=== PATIENT | female | born 1965 | race Caucasian/White ===

== ENCOUNTER 2018-11-27 06:08 | Emergency (ER) | payer MEDICAID ==
[~2018-11-27] VITALS: Ht 157.5 cm; Wt 61.2 kg
[2018-11-27 06:10] VITALS: BP_SYST 123
[2018-11-27 08:19] LABS: STREPTOCOCCUS A SCREEN (RAPID) NEGATIVE (NEGATIVE)
[2018-11-27] MEDS ORDERED: IBUPROFEN 600 MG TABLET PO ONE (08:45)
[2018-11-27 08:51] VITALS: BP_SYST 120
== END 2018-11-27 08:51 | disposition home or self-care (01) ==
LOC: SED 06:08
DX: B34.9 Viral infection, unspecified (principal); M79.10 Myalgia, unspecified site; R07.89 Other chest pain; I10 Essential (primary) hypertension; Z88.1 Allergy status to other antibiotic agents; Z88.2 Allergy status to sulfonamides; Z88.8 Allergy status to other drugs, medicaments and biological substances
CPT/HCPCS: 36415; 86403; 86710; 87081; 99283

== ENCOUNTER 2019-12-27 06:46 | Emergency (ER) | payer MEDICAID ==
[~2019-12-27] VITALS: Ht 157.5 cm; Wt 55.3 kg
[2019-12-27 06:50] VITALS: BP_SYST 149
--- NOTE | 2019-12-27 06:52 | NUR ---
Patient to ER bed 07 to gown for evaluation. Side rails up.
--- NOTE | 2019-12-27 06:52 | NUR ---
Pt brought into ED by self. Pt states she drover self to ED. Pt awake, alert, oriented x4. Pt ambulates with mild limp on R side. Pt has unlabored respirations, symmetrical rise and fall of chest. Pt states chief complaint of sever right ankle pain and mild left ankle pain secondary to mechanical slip and fall while descending a set of wooden stairs. Pt states that she missed a step and her right ankle twisted, she tried to catch self with left ankle when she tumbled into a sitting position on stair with r leg pinned behind her. Pt states she has full range of motion of all effected joints, with increasing pain on plantar flexion of the R foot. Pt is able to bear weight. Pt denies KO, syncope, chest pain, dizziness, shortness of breath, nausea, vomiting, blurred vision, head impact, pt denies any other medical complaint at this time. Pt resting in ED bed comfortably, mild distress. Pt rates R ankle pain as 9/10, L ankle pain as 1/10. VSS
--- NOTE | 2019-12-27 06:53 | NUR ---
(Nursing Notes Cont.) Pt has mild abraisions and swelling to lateral side of ankle near lateral malleolus.
--- NOTE | 2019-12-27 06:59 | NUR ---
SAKSHI Kilgore at bedside examining patient.
--- NOTE | 2019-12-27 07:12 | NUR ---
Medication was given, pt tolerated well. No acute distress, will continue to monitor.
[2019-12-27] MEDS ORDERED: IBUPROFEN 600 MG TABLET PO ONE (07:15)
--- NOTE | 2019-12-27 07:20 | NUR ---
Report given to NANCY Velasco. All care endorsed.
--- NOTE | 2019-12-27 07:29 | NUR ---
Patient has a three 1-1.5 cm abrasions ringt foot. Edges well approximated. Site cleansed with sterile water . Dressing of non adhering applied to site. No bleeding noted. Pt tolerated well.
[2019-12-27] MEDS ORDERED: BACITRACIN 1 GM OINT TP ONE ×2 (07:30→07:40)
--- NOTE | 2019-12-27 07:30 | NUR ---
Crutches properly fitted for patient by Krista CRUZ. Patient given crutch walking instructions and demonstration. Is able to demonstrate adequate crutch walking technique with crutches provided. Vishnu wrap applied right ankle. pedal pulse noted. Capillary refill < 3 seconds. Patient has ability to move non-splinted digits. Has sensation present to affected site. Skin color within normal limits. Applied for pain management control.
[2019-12-27 07:45] VITALS: BP_SYST 144
--- NOTE | 2019-12-27 07:45 | NUR ---
Patient given written and verbal discharge instructions and verbalizes understanding. ER MD discussed with patient the results and treatment provided. Patient in stable condition. ID arm band removed. Rx of Ibuprofengiven. Patient educated on pain management and to follow up with PMD. Pain Scale 3/10. Opportunity for questions provided and answered. Medication side effect fact sheet provided.
== END 2019-12-27 07:45 | disposition home or self-care (01) ==
LOC: SED 06:46
DX: S93.401A Sprain of unspecified ligament of right ankle, initial encounter (principal); I10 Essential (primary) hypertension; Z88.1 Allergy status to other antibiotic agents; Z88.2 Allergy status to sulfonamides; X50.1XXA Overexertion from prolonged static or awkward postures, initial encounter; Y93.01 Activity, walking, marching and hiking; Y92.89 Other specified places as the place of occurrence of the external cause; Y99.8 Other external cause status
CPT/HCPCS: 99284